=== PATIENT | female | born 1970 ===

== ENCOUNTER 2019-07-24 06:11 | Day surgery (SDC) | payer OTHER ==
[~2019-07-24 06:11] MED LIST: CLONAZEPAM0.5 MG PO; METHOTREXATE PO; PLAQUENIL PO; PREDNISONE PO; RESTORIL PO; TOPROL PO; ZESTRIL40 M1 PO
[2019-07-24] MEDS ORDERED: PERCOCET 5-3251 EACH PO (11:04)
== END 2019-07-24 13:50 | disposition home or self-care (01) ==
LOC: CIR.AMB 06:11 → ADM 07-25 10:45
DX: D35.1 Benign neoplasm of parathyroid gland (principal)